=== PATIENT | female | born 1945 | race Caucasian/White ===

== ENCOUNTER 2017-10-26 09:14 | Outpatient (CLI) | payer MEDICARE | END 2017-10-26 09:15 | disposition home or self-care (01) | LOC: BICMAMMO 09:14 | PROVIDERS: ATTEND Internal Medicine Hematology & Oncology | DX: Z08 Encounter for follow-up examination after completed treatment for malignant neoplasm (principal); Z85.3 Personal history of malignant neoplasm of breast | CPT/HCPCS: 77065; G0279 ==

== ENCOUNTER 2018-02-15 10:03 | Outpatient (CLI) | payer MEDICARE ==
--- NOTE | 2018-02-15 14:13 | MRI ---
MRI OF LEFT TIBIA FIBULA PERFORMED WIHTOUT CONTRAST ENHANCEMENT: HISTORY: Left lower leg pain x 1 month. FINDINGS: There are subcutaneous edema changes which are mainly confined to the medial side of the calf region. There appear to be some superficial varicosities present. Also, there is some edema change associa stan with Kager's fat. The tibia shows fairly normal signal change. There is some mild edema change seen within the marrow of the mid to distal tibia which is asymmetric as compared to the proximal tib ia. I do not see any signs of fracture, but this would suggest some element of stress-type reaction. IMPRESSION: 1. Some very mild edema changes of the mid to distal tibial shaft suggesting some stress-type reacti on. No fracture is identified. 2. There are some mild subcutaneous edema changes seen along the medial side of the calf extending t o the ankle. There is also some edema change within Kager's fat. The Achilles tendon appears normal . POS: [facility]
== END 2018-02-15 10:04 | disposition home or self-care (01) ==
LOC: TBSIIMAG 10:03
PROVIDERS: ATTEND Orthopaedic Surgery
DX: M79.662 Pain in left lower leg (principal)

== ENCOUNTER 2018-10-28 13:58 | Outpatient (CLI) | payer MEDICARE, OTHER ==
--- NOTE | 2018-10-29 06:48 | MMO ---
Right Breast MAMMO Unilat Diag DDI RT+CLARITZA. CLINICAL HISTORY: Patient is 73 years old and is seen for diagnostic exam. The patient has no family history of breast cancer. 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 VIEWS: The views performed were: right craniocaudal with tomosynthesis; right mediolateral oblique with tomosynthesis; and right mediolateral with tomosynthesis. FILMS COMPARED: The present examination has been compared to prior imaging studies performed at [facility] on 10/20/2014, 10/25/2015, 10/25/2016 and 10/26/2017. MAMMOGRAM FINDINGS: There are scattered fibroglandular densities. There are stable benign appearing calcifications seen in the right breast. There are no suspicious masses, suspicious calcifications, or new areas of architectural distortion. IMPRESSION: THERE IS NO MAMMOGRAPHIC EVIDENCE OF MALIGNANCY. A ROUTINE FOLLOW-UP MAMMOGRAM IN 1 YEAR IS RECOMMENDED. THE RESULTS OF THIS EXAM WERE SENT TO THE PATIENT. ACR BI-RADS Category 2 - Benign finding MAMMOGRAPHY NOTE: 1. A negative mammogram report should not delay a biopsy if a dominant of clinically suspicious mass is present. 2. Approximately 10% to 15% of breast cancers are not detected by mammography. 3. Adenosis and dense breasts may obscure an underlying neoplasm. Reported by: ESSENCE WILKINSON MD Electonically Signed: [id number]
== END 2018-10-28 13:59 | disposition home or self-care (01) ==
LOC: BICMAMMO 13:58
PROVIDERS: ATTEND Internal Medicine Hematology & Oncology
DX: Z08 Encounter for follow-up examination after completed treatment for malignant neoplasm (principal); Z85.3 Personal history of malignant neoplasm of breast; Z98.890 Other specified postprocedural states
CPT/HCPCS: 77065; G0279

== ENCOUNTER 2018-12-12 08:31 | Day surgery (SDC) | payer MEDICARE, OTHER ==
[2018-12-11 08:33] VITALS: BMI 20.9
[2018-12-12] MEDS ORDERED: Phenylephrine 2.5% Ophth Soln 5 ML BOT ONE (09:46)
[2018-12-12] MEDS ORDERED: Cyclopentolate 1% Opth Drop 2 ML BOT ONE (09:46)
[2018-12-12] MEDS ORDERED: EPINEPHrine 0.3 MG in Ophthalmic Irrigation Solution 500 ML IVP SCH (10:15)
[2018-12-12] MEDS ORDERED: Fentanyl 100 MCG/2 ML VIAL ONE (11:30)
[2018-12-12] MEDS ORDERED: Midazolam HCl 2 mg/2 ml Vial ONE (11:51)
--- NOTE | 2018-12-12 18:16 | OP ---
DATE OF PROCEDURE: 12/12/2018 PRINCIPAL PREOPERATIVE DIAGNOSIS: Vitreomacular traction syndrome, left eye. POSTOPERATIVE DIAGNOSIS: Vitreomacular traction syndrome, left eye.. PROCEDURE PERFORMED: 25-gauge pars plana vitrectomy, left eye. ESTIMATED BLOOD LOSS: None. SPECIMEN REMOVED: None. COMPLICATIONS: None. ANESTHESIA: MAC with retrobulbar block. DESCRIPTION OF PROCEDURE: The patient was identified in the preoperative holding area, where the correct eye being the left eye was marked for surgery. The patient was taken to the operating room, where MAC anesthesia was induced. A retrobulbar block was administered to the left eye. The block consisted of 1:1 ratio of 4% lidocaine and 0.75% Marcaine. A total of 5 mL was administered. The left eye was then prepped and draped in usual sterile ophthalmic fashion for surgery. A wire lid speculum was placed. A standard 25-gauge pars plana vitrectomy platform was fashioned with trocars placed approximately 3.5 mm from the limbus. The infusion was noted to be within the vitreous cavity prior to being turned on to an infusion pressure of 30 mmHg. The light pipe microvitrector was introduced in the eye under visualization with RESorangutrans viewing system. A careful core vitrectomy was performed followed by injection of Kenalog. Subsequently, a gentle posterior vitreous detachment was created followed by completion of the peripheral shave vitrectomy. Following vitrectomy, a 360-degree scleral depressed exam of the periphery revealed no defects. The cannulas were sequentially removed and all sclerotomies were noted to be watertight. Subconjunctival Ancef and Kenalog were injected. The wire lid speculum was removed followed by application of TobraDex ophthalmic ointment and a light patch and shield. The patient tolerated the procedure well and was taken to outpatient recovery area in good condition. Job ID: [id number]
== END 2018-12-12 13:27 | disposition home or self-care (01) ==
LOC: SDC 08:31
PROVIDERS: ATTEND Ophthalmology Retina Specialist
PROC: 08T53ZZ Resection of Left Vitreous, Percutaneous Approach (ICD-10-PCS; principal; 2018-12-12)
DX: H43.822 Vitreomacular adhesion, left eye (principal); Z91.048 Other nonmedicinal substance allergy status
CPT/HCPCS: J0171; J2250; J3010

== ENCOUNTER 2019-01-14 13:24 | Outpatient (CLI) | payer MEDICARE, OTHER | END 2019-01-14 13:25 | disposition home or self-care (01) | LOC: ULT 13:24 | PROVIDERS: ATTEND Internal Medicine | DX: R07.9 Chest pain, unspecified (principal); I07.1 Rheumatic tricuspid insufficiency | CPT/HCPCS: 93306 ==

== ENCOUNTER 2019-01-15 08:23 | Outpatient (CLI) | payer MEDICARE, OTHER ==
[2019-01-15] MEDS ORDERED: ADENOSINE 60 MG/20 ML VIAL ONE (09:21)
--- NOTE | 2019-01-15 12:05 | NM ---
MYOCARDIAL PERFUSION EVALUATION: RADIOPHARMACEUTICAL: 32.8 and 10.4 mCi technetium 99m sestamibi IV administered at stress and rest. CLINICAL HISTORY: Chest pain. FINDINGS: With the use of attenuation and nonattenuation correction imaging, there is a mild area of moderately reduced activity involving the distal aspect of the septum, approximating the apex. No significant reversibility. This could relate to a small area of scar or alternatively physiologic thinning near t he apex, as there is no significant wall motion abnormality demonstrated by gated imaging. The calculated LVEF measures 85% with wall motion and contractility documented. IMPRESSION: Equivocal myocardial perfusion evaluation. There is a small area of moderately reduced activity at th e distal septum, near the apex, without a notable wall motion abnormality, and no evidence of significant reversibility. Correlate with EKG findings for further assessment. Transcribed Date/Time: 01/15/2019 12:11 PM
== END 2019-01-15 08:24 | disposition home or self-care (01) ==
LOC: NM 08:23
PROVIDERS: ATTEND Internal Medicine
DX: R07.9 Chest pain, unspecified (principal)
CPT/HCPCS: 78452; 93017; A9500; J0153

== ENCOUNTER 2020-11-01 10:10 | Outpatient (CLI) | payer MEDICARE, OTHER | END 2020-11-01 10:11 | disposition home or self-care (01) | LOC: BICMAMMO 10:10 | PROVIDERS: ATTEND Internal Medicine Hematology & Oncology | DX: Z12.31 Encounter for screening mammogram for malignant neoplasm of breast (principal); Z85.3 Personal history of malignant neoplasm of breast; Z90.12 Acquired absence of left breast and nipple | CPT/HCPCS: 77063; 77067 ==

== ENCOUNTER 2020-11-25 14:25 | Outpatient (CLI) | payer MEDICARE, OTHER | END 2020-11-25 14:26 | disposition home or self-care (01) | LOC: BICULT 14:25 | PROVIDERS: ATTEND Internal Medicine Hematology & Oncology | DX: R22.2 Localized swelling, mass and lump, trunk (principal) ==

== ENCOUNTER 2021-11-03 09:54 | Outpatient (CLI) | payer MEDICARE, OTHER | END 2021-11-03 09:55 | disposition home or self-care (01) | LOC: BICMAMMO 09:54 | PROVIDERS: ATTEND Obstetrics & Gynecology | DX: Z12.31 Encounter for screening mammogram for malignant neoplasm of breast (principal); Z85.3 Personal history of malignant neoplasm of breast; Z90.12 Acquired absence of left breast and nipple; Z98.890 Other specified postprocedural states | CPT/HCPCS: 77063; 77067 ==

== ENCOUNTER 2022-11-30 14:09 | Outpatient (CLI) | payer MEDICARE, OTHER | END 2022-11-30 14:10 | disposition home or self-care (01) | LOC: BICMAMMO 14:09 | PROVIDERS: ATTEND Obstetrics & Gynecology | DX: Z12.31 Encounter for screening mammogram for malignant neoplasm of breast (principal); Z90.12 Acquired absence of left breast and nipple | CPT/HCPCS: 77063; 77067 ==

== ENCOUNTER 2023-01-09 13:05 | Outpatient (CLI) | payer MEDICARE, OTHER | END 2023-01-09 13:06 | disposition home or self-care (01) | LOC: BICMAMMO 13:05 | PROVIDERS: ATTEND Internal Medicine | DX: M81.0 Age-related osteoporosis without current pathological fracture (principal); M85.89 Other specified disorders of bone density and structure, multiple sites | CPT/HCPCS: 77080 ==

== ENCOUNTER 2024-01-01 15:23 | Outpatient (CLI) | payer MEDICARE, OTHER | END 2024-01-01 15:24 | disposition home or self-care (01) | LOC: BICMAMMO 15:23 | PROVIDERS: ATTEND Obstetrics & Gynecology | DX: Z12.31 Encounter for screening mammogram for malignant neoplasm of breast (principal); Z90.12 Acquired absence of left breast and nipple; Z85.3 Personal history of malignant neoplasm of breast | CPT/HCPCS: 77063; 77067 ==

== ENCOUNTER 2025-01-29 11:02 | Outpatient (CLI) | payer MEDICARE, OTHER | END 2025-01-29 11:03 | disposition home or self-care (01) | LOC: BICMAMMO 11:02 | PROVIDERS: ATTEND Obstetrics & Gynecology | DX: Z12.31 Encounter for screening mammogram for malignant neoplasm of breast (principal); Z90.12 Acquired absence of left breast and nipple; Z98.890 Other specified postprocedural states | CPT/HCPCS: 77063; 77067 ==